=== PATIENT | female | born 1985 | race Hispanic/Latino ===

== ENCOUNTER 2023-01-19 09:02 | Emergency (ER) | payer OTHER ==
[~2023-01-19] VITALS: Ht 157.5 cm; Wt 83.9 kg
[2023-01-19 09:06] VITALS: TEMP 98.1
[2023-01-19 09:42] LABS: PLATELET COUNT 359 K/uL (152-353)
[2023-01-19 09:45] LABS: POTASSIUM 3.5 mmol/L (3.6-5.2)
[2023-01-19 10:00] VITALS: BP 117/67
== END 2023-01-19 10:30 | disposition home or self-care (01) ==
LOC: ED 09:02
PROVIDERS: Family Medicine
DX: G43.A0 Cyclical vomiting, in migraine, not intractable (principal)
CPT/HCPCS: 80053; 80307; 81002; 85027; 96361; 96374; 96375; 99284; J1885; J2405

== ENCOUNTER 2023-02-14 07:27 | Outpatient (CLI) | payer OTHER ==
[2023-02-14 07:53] LABS: PLATELET COUNT 334 K/uL (152-353)
[2023-02-14 08:01] LABS: POTASSIUM 3.9 mmol/L (3.6-5.2)
== END 2023-02-14 19:13 | disposition home or self-care (01) ==
LOC: LABW 07:27
PROVIDERS: ATTEND Nurse Practitioner Family
DX: R10.11 Right upper quadrant pain (principal)
CPT/HCPCS: 36415; 80053; 82150; 83690; 85027